=== PATIENT | male | born 1975 | race Caucasian/White ===

== ENCOUNTER 2016-11-24 12:13 | Observation (INO) | payer OTHER ==
[~2016-11-24] VITALS: Ht 170.2 cm; Wt 87.4 kg
[2016-11-24 12:28] VITALS: BP 128/86; PULSE 66; TEMP 97.6
[2016-11-24] MEDS ORDERED: LEXAPRO 10MG10 MG PO (12:31)
[2016-11-24] MEDS ORDERED: ZYLOPRIM 100MG100 MG PO (12:31)
[2016-11-24 15:30] VITALS: BP 115/75; PULSE 67; TEMP 97.9
[2016-11-24 15:45] VITALS: BP 119/79; PULSE 64; TEMP 98.2
[2016-11-24 16:00] VITALS: BP 118/76; PULSE 64
[2016-11-24 16:15] VITALS: BP 121/76; PULSE 67; TEMP 98.4
[2016-11-24 17:15] VITALS: BP 117/79; PULSE 66; TEMP 98.1
[2016-11-24] MEDS ORDERED: NORCO 325 MG-51 TAB PO (17:58)
[2016-11-24] MEDS ORDERED: PYRIDIUM 100MG100 MG PO (17:59)
== END 2016-11-24 18:55 | disposition home or self-care (01) ==
LOC: SURG 12:13
DX: N20.2 Calculus of kidney with calculus of ureter (principal); Z86.39 Personal history of other endocrine, nutritional and metabolic disease; Z87.442 Personal history of urinary calculi
CPT/HCPCS: C1769; C2617; J0690; J2405; J2704; J3010; J7030; Q9967